=== PATIENT | female | born 1975 | race Caucasian/White ===

== ENCOUNTER 2022-03-22 06:03 | Day surgery (SDC) | payer OTHER, SELFPAY ==
[2022-03-16 10:21] VITALS: BMI 32.0
--- NOTE | 2022-03-19 10:28 | MHC.SHP ---
Pre-Procedural Eval Section A Date of Service: 03/19/22 The patient is an INPATIENT: No Changes since office visit: No Cold of Flu in the past 2 weeks, No New Medical Problems, No Changes in Medication and No Patient answered all questions The History & Physical has been completed within 30 days and I have reviewed it.: Yes Section B Chief Complaint: estropia Allergies: Allergies Allergy/AdvReac Type Severity Reaction Status Date / Time codeine AdvReac Intermediate Shakiness-pt.thinks Verified 03/16/22 10:19 could have been that paxil had been held metoclopramide [From Reglan] AdvReac Intermediate Shakiness-pt.thinks Verified 03/16/22 10:19 could have been that paxil had been held Plan Diagnosis/Plan: Unchanged I have reviewed the history and physical and performed a pertinent physical examination on my patient. No changes have occurred unless specified.
--- NOTE | 2022-03-19 12:04 | HO.ANESPROP2 ---
Documented by User: Estephania Thomas NP 03/19/22 12:05 HPI - Anesthesia Eval Consult details Narrative: 47yo F for Left Strabismus PCP cleared No previous PMFSH Past Medical History Medical History (Updated 03/16/22 @ 10:20 by Alexa Sanz, RN) Arthritis COVID-19 vaccine series completed Depression History of postoperative nausea and vomiting Surgical History Surgical History (Updated 03/16/22 @ 10:17 by Alexa Sanz RN) H/O colonoscopy History of surgery on arm Hx of appendectomy Hx of cholecystectomy Hx of eye surgery Hx of hand surgery Social History Social History Are you a primary career development facilitator to a significant other at home: No Do you presently have visiting nurse or other home services: No Patient Tobacco Use Status: Never used Tobacco Use of substances other than those prescribed or required for medical reasons: No Have you been hit, kicked, punched, or otherwise hurt by someone within the past year? If so, by whom?: No Are you DNR?: No Advance Directives: No Advance Directives Information Provided: Yes Advance Directives on File: No Recently lost weight without trying: No Eating poorly because of decreased appetite: No Nutrition Risks: No Nutritional Risk Patient : No FDLMP: 02/28/22 : No Poor oral hygiene: No Meds Allergies Allergy/AdvReac Type Severity Reaction Status Date / Time codeine AdvReac Intermediate Shakiness-pt.thinks Verified 03/16/22 10:19 could have been that paxil had been held metoclopramide [From Reglan] AdvReac Intermediate Shakiness-pt.thinks Verified 03/16/22 10:19 could have been that paxil had been held Home Medications Medication Instructions Recorded Confirmed Last Taken Type No Known Home Meds 03/16/22 03/16/22 Unknown History Exam Exam Date and Time: March 19, 2022 1204 Height,Weight and Vital Signs: Height 5 ft 6 in Weight 90 kg Narrative Narrative: EKG 02/2022 NSR Assessment and Plan Assessment Anesthesia Assessment: Chart Reviewed Documented by User: Harjit Oliva MD 03/22/22 06:50 PMFSH Past Medical History Medical History (Updated 03/16/22 @ 10:20 by Alexa Sanz RN) Arthritis COVID-19 vaccine series completed Depression History of postoperative nausea and vomiting Family History Family history of problems with anesthesia: No Surgical History Surgical History (Updated 03/16/22 @ 10:17 by Alexa Sanz RN) H/O colonoscopy History of surgery on arm Hx of appendectomy Hx of cholecystectomy Hx of eye surgery Hx of hand surgery History of Problems with Anesthesia: No Social History Social History Are you a primary career development facilitator to a significant other at home: No Do you presently have visiting nurse or other home services: No Patient Tobacco Use Status: Never used Tobacco Use of substances other than those prescribed or required for medical reasons: No Have you been hit, kicked, punched, or otherwise hurt by someone within the past year? If so, by whom?: No Are you DNR?: No Advance Directives: No Advance Directives Information Provided: Yes Advance Directives on File: No Recently lost weight without trying: No Eating poorly because of decreased appetite: No Nutrition Risks: No Nutritional Risk Patient : No FDLMP: 02/28/22 : No Poor oral hygiene: No Meds Allergies Allergy/AdvReac Type Severity Reaction Status Date / Time codeine AdvReac Intermediate Shakiness-pt.thinks Verified 03/16/22 10:19 could have been that paxil had been held metoclopramide [From Reglan] AdvReac Intermediate Shakiness-pt.thinks Verified 03/16/22 10:19 could have been that paxil had been held Home Medications Medication Instructions Recorded Confirmed Last Taken Type No Known Home Meds 03/16/22 03/16/22 Unknown History Exam Airway Mallampati Class: II TM Dist: >3cm Neck ROM: Full Loose/Missing/Broken Teeth: No Heart: [id number] Lungs: cta b/l Assessment and Plan Assessment Anesthesia Assessment: Anesthesia Plan Discussed Final Anesthetic Review Family History of Problems with Anesthesia: No History of Problems with Anesthesia: No NPO: Yes ASA Class: II Final Preanesthetic Review: No Changes in Pt Med Stat, Meds/Allgs Chart Reviewed, Consent Obtained/Reviewed and Anes Risks/Benef Reviewed Patient Risk: Intermediate Procedure Risk: Low Assessment/Block/Sedation in SS: Assess/Block/Sedation-SS Anesthetic Plan Anesthetic Plan: GA and Agree w/ Assess. and Plan Disposition: Standard PACU
[2022-03-22] VITALS (15 sets, daily range): BP systolic 88–127; BP diastolic 49–86; PULSE 57–93; RESP 14–18; TEMP 36.1–36.5; O2SAT 96–100
[2022-03-22 06:32] LABS: UPreg QC Valid YES; Urine Pregnancy NEGATIVE (NEGATIVE)
[2022-03-22] MEDS: Lactated Ringers 500 ML 50 ML IV (07:10)
[2022-03-22] MEDS: fentaNYL citrate/PF 100 MCG/2 ML VIAL 50 MCG IVPUSH (09:24)
[2022-03-22] MEDS: ondansetron HCL 4 MG/2 ML VIAL IVPUSH (10:57)
--- NOTE | 2022-03-22 20:22 | OP_ITS ---
SURGEON: Everett Phillips MD PREOPERATIVE DIAGNOSIS: POSTOPERATIVE DIAGNOSIS: Esotropia. PROCEDURE PERFORMED: Medial rectus resection of 4 mm and lateral rectus resection at 6 mm. ESTIMATED BLOOD LOSS: COMPLICATIONS: ANESTHESIA: General. ASSISTANTS: SPECIMENS: INDICATION FOR SURGERY: Esotropia. DESCRIPTION OF PROCEDURE: After obtaining informed consent, the patient was brought to the operating room suite and placed in supine position. After adequate sedation, the left eye was prepped and draped in usual sterile fashion. Attention was directed to the medial rectus muscle where conjunctival incision was created overlying the medial rectus muscle. The muscle was identified in a sequential muscle hook technique followed by placement of a double arm suture without locking stitch at each margin of the muscle. The muscle then was resected from the globe and positioned 6 mm posterior to the incision site. The conjunctiva was closed with running 2-0 Vicryl suture. Attention was directed to the lateral rectus muscle, where the conjunctival incision was created overlying the muscle. The muscle was sparsed through the conjunctiva. It was removed with a combination of sharp and blunt dissection with Jaswant scissors. Muscle was subsequently identified with sequential muscle hook technique. The overlying sutures were placed, but locking suture in each marginal muscle. The muscle was resected 6 mm posterior to the incision site and the muscle was then reattached to the original incision site. The conjunctiva was then closed with 6-0 Vicryl. Erythromycin ointment was placed on the eye. The patient tolerated the procedure well and will be seen in followup. MD PRAKASH [place]/MODL / [id number] MTDD
== END 2022-03-22 11:58 ==
LOC: HO.SSS 06:04
PROVIDERS: Nurse Practitioner; PCP Internal Medicine; Visit Provider Ophthalmology
PROC: (CPT 67312; principal; 2022-03-22 07:30)
DX: H50.00 Unspecified esotropia (principal); Z88.8 Allergy status to other drugs, medicaments and biological substances
CPT/HCPCS: 67312; 81025; 88305; J1100; J2250; J2405; J2550; J3010

== ENCOUNTER 2023-10-05 13:08 | Day surgery (SDC) | payer OTHER, SELFPAY ==
[2023-10-03 10:58] VITALS: BMI 22.0
[2023-10-03 11:32] VITALS: BMI 21.4
--- NOTE | 2023-10-04 09:04 | P.CONAN_ITS ---
HPI - Anesthesia Eval Consult details Narrative: 48yo F for Right Lateral Rectus Recession, Right medial rectus Recession, Bilateral inferior oblique Per pt, PONV and slow to wake after 2021 eye surgery Anesthesia Pre-Procedure Meds Is the patient on any of the following meds?: Any other SGL-1 drugs or drugs that delay gastric emptying If Yes to any meds - educate patient: Pt education - increased risk of aspiration and Pt education - possibility of cancelled proc at provider's discretion PMFSH Past Medical History Medical History (Updated 10/03/23 @ 11:32 by Yessica Santana, MIMA) Slow to wake up after anesthesia Depression History of postoperative nausea and vomiting Arthritis COVID-19 vaccine series completed Family History Family history of problems with anesthesia: No Surgical History Surgical History (Updated 10/03/23 @ 11:39 by Yessica Santana, MIMA) Hx of shoulder surgery Hx of eye surgery History of surgery on arm Hx of eye surgery H/O colonoscopy Hx of hand surgery Hx of cholecystectomy Hx of appendectomy History of Problems with Anesthesia: No Social History Are you a primary child care center administrator to a significant other at home: No Do you presently have visiting nurse or other home services: No Patient Tobacco Use Status: Never used Tobacco Use of substances other than those prescribed or required for medical reasons: No Have you been hit, kicked, punched, or otherwise hurt by someone within the past year? If so, by whom?: No Are you DNR?: No Advance Directives: No Advance Directives Information Provided: Yes Advance Directives on File: No Recently lost weight without trying: No Nutrition Risks: No Nutritional Risk Patient : No FDLMP: 09/28/2023 : No Poor oral hygiene: No Meds Allergies Allergy/AdvReac Type Severity Reaction Status Date / Time codeine AdvReac Intermediate Shakiness-pt.thinks Verified 10/03/23 11:35 could have been that paxil had been held metoclopramide [From Reglan] AdvReac Intermediate Shakiness-pt.thinks Verified 10/03/23 11:35 could have been that paxil had been held Home Medications Medication Instructions Recorded Confirmed Last Taken Type tirzepatide 7.5 mg/0.5 mL 7.5 mg subcut .EVERY 2 WEEKS 10/03/23 10/03/23 09/23/23 08:00 History subcutaneous pen injector 7.5 mg (Sugey) Exam Exam Date and Time: October 04, 2023 0904 Height,Weight and Vital Signs: Height 5 ft 5.91 in Weight 59.874 kg Assessment and Plan Assessment Anesthesia Assessment: Chart Reviewed Final Anesthetic Review Family History of Problems with Anesthesia: No History of Problems with Anesthesia: No
[2023-10-05] VITALS (8 sets, daily range): BP systolic 98–128; BP diastolic 38–69; PULSE 84–104; RESP 16–18; TEMP 36.2–37; O2SAT 98–100; BMI 21.6
[2023-10-05 13:22] LABS: UPreg QC Valid YES; Urine Pregnancy NEGATIVE (NEGATIVE)
[2023-10-05] MEDS: Scopolamine 1.5 MG PATCH.TD.3 TRANSDERMA (13:32)
[2023-10-05] MEDS: Lactated Ringers 1,000 ML 100 ML IVCONT (13:50)
--- NOTE | 2023-10-05 15:51 | P.OPHTHAL_ITS ---
Ophthalmology Operative Note Date of Service: 10/05/23 Narrative: Diagnoses 1. 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 Procedures 1. Recession of right medial rectus muscle from 8to 11 mm behind the surgical limbus. 2. Resection of right lateral rectus muscle 5 mm 3. Anterior transposition of the right inferior oblique muscle. 4. Anterior transposition of the left inferior oblique muscle. Surgeon Dr. Robles. Anesthesia general. Complications none. The patient was brought to the operating room placed under general anesthesia. The eyes were prepped and draped in the usual sterile ophthalmic fashion. The lid speculum was placed in the right eye and a peritomy was created around the inferior and lateral rectus muscles. The inferior and lateral rectus muscles were placed on a large muscle hooks and the inferior oblique carefully grasped with 2 small tenotomy hooks. The muscle was transferred to the large muscle hooks and grasped near its insertion with a curved mosquito. It was disinserted from the globe and tr ansposed to a position 2 mm posterior and 2 mm temporal to the temporal insertion of the inferior rectus muscle. The lateral rectus muscle was then hooked and dissected free of extensive surrounding scar tissue. A 5 mm resection was marked off with cautery and and secured with a double-armed Vicryl suture. The distal muscle was resected and the resection point drawn forward to the original insertion with the Vicryl suture. Conjunctiva was closed with interrupted Vicryl sutures. A peritomy was then created around the medial rectus muscle. The muscle was hooked and dissected free of extensive surrounding scar tissue. It was measured to be 8 mm behind the surgical limbus and the muscle was then secured with a double-armed Vicryl suture. It was disinserted from the globe and reattached to a position 3 mm further back. Conjunctiva was closed with interrupted Vicryl sutures. The lid speculum was then transferred to the left eye where a peritomy was created around the inferior and lateral rectus muscles. The inferior and lateral rectus muscles were placed on large muscle hooks and scar tissue was dissected free in the inferotemporal quadrant until the inferior oblique could be carefully identified and grasped with 2 small tenotomy hooks. It was transferred to the large muscle hooks and grasped near its insertion with a curved mosquito. It was then disinserted from the globe and transposed to a position 2 mm posterior and 2 mm temporal to the temporal insertion of the inferior rectus muscle. Conjunctiva was closed with interrupted Vicryl sutures. The patient was then awoken from general anesthesia and discharged to postoperative recovery in good condition.
[2023-10-05] MEDS: Acetaminophen 1,000 MG/100 ML PIGGYBACK 400 MG IV (17:01)
== END 2023-10-05 17:51 | disposition home or self-care (01) ==
LOC: HO.SSS 13:09
PROVIDERS: Nurse Practitioner; PCP Internal Medicine; Visit Provider Ophthalmology
PROC: (CPT 67312; principal; 2023-10-05 15:00)
DX: H50.05 Alternating esotropia (principal); H51.8 Other specified disorders of binocular movement; H50.21 Vertical strabismus, right eye
CPT/HCPCS: 67312; 67320; 67314; 81025; J0131; J1100; J1885; J2405; J2704; J3010